=== PATIENT | male | born 1990 | race Caucasian/White ===

== ENCOUNTER 2017-03-14 10:10 | Emergency (ER) | payer OTHER ==
[2017-03-14 10:17] VITALS: TEMP 98.4
[2017-03-14] MEDS ORDERED: TDAP ADULT 0.5 ML INJ (BOOSTRIX) IM ONE (10:35)
--- NOTE | 2017-03-14 11:26 | EDPHY ---
General Narrative: CHIEF COMPLAINT: Right wrist laceration HISTORY OF PRESENT ILLNESS: Patient presents with complaints of accidental laceration to the right wrist. He works with a [employer]. He was attempting to move a vinyl graphic when it slipped, accidentally puncture in the right wrist. He says "it was pretty deep." He has no difficulty moving the wrist. No pulsatile bleeding. He does have some tingling on the ulnar side of the little finger. Moderately painful. Worse when he moves the fingers. Improvement with rest. No radiating pain. No difficulty bending or straightening the fingers. No injury elsewhere. Tetanus is up-to-date as best as he can remember but he is not entirely sure. No other associated complaints or modifying factors. TIME OF INJURY: Less than 1 hr prior to arrival TETANUS STATUS: Possibly within the past 2 years but uncertain MEDICAL/SURGICAL/SOCIAL HISTORY: No significant medical history. Does smoke cigarettes. REVIEW OF SYSTEMS: Ten systems reviewed and are negative unless otherwise noted in the HPI EXAMINATION General Appearance: Alert, no distress Head: normocephalic, atraumatic Cardiovascular: Pulses normal throughout. Symmetric radial pulses 2+. Brisk cap refill Neurological: A&O, casting molder strength symmetric. Sensory intact to the median and ulnar distribution with reported paresthesia of the right pinky. Skin: Warm and dry, no rash. 1 cm laceration on the right wrist, volar, just proximal to the carpals. No evidence of tendon injury. No foreign body. No pulsatile bleeding. Extremities: Tenderness in the area laceration. Full flexion extension of all fingers on the right hand without deficit. Full flexion of the wrist without deficit. No injury to the tendon appreciated DIFFERENTIAL DIAGNOSES: Including but not limited to simple laceration, complex laceration, laceration with tendon injury, laceration with arterial injury MDM: 10:35 a.m. Superficial laceration to the right wrist, volar. No evidence of tendon injury. No evidence of neurovascular injury. I have anesthetize the area. Proceed with irrigation closure. Tetanus will need to be updated. 11:25 a.m. Simple laceration that has been repaired without difficulty. Wound care discussed. I do not appreciate any evidence of tendon or arterial injury. Follow up with Work Comp clinic. ED precautions discussed. Suture removal in 7 days. Discharged in stable condition, neurovascular intact. PROCEDURE: Laceration repair Consent: Verbal Location: Right wrist, volar distally Length of repair: 1 cm Complexity: Simple Layer involvement: Single Anesthesia: Local. 1% lidocaine with epinephrine. 4 mL Irrigation: Extensive Debridement: None Procedure description: Following good anesthesia, the wound was copiously irrigated. Wound bed was explored with a sterile glove, and there is no foreign body noted. No injury to the underlying flexor tendons. Wound borders were approximated well with good hemostasis. Tolerated well without complication. Suture/Staple material: 5-0 Prolene, 2 simple interrupted sutures Wound care: Routine as discussed Suture/Staple removal: 7 Days SUPERVISION: This patient was independently evaluated without direct involvement of or examination by the attending physician. ED Precautions: Worsening pain. Erythema, edema, cyanosis, pallor, paresthesia or anesthesia. - History Smoking Status: Current every day smoker - Objective Vital Signs: Initial Vital Signs Temperature (C) 98.4 F 03/14/17 10:14 Heart Rate 88 03/14/17 10:14 Respiratory Rate 97 H 03/14/17 10:14 Blood Pressure 120/70 03/14/17 10:14 O2 Sat (%) 16 L 03/14/17 10:14 O2 Delivery Mode Room Air Allergies/Adverse Reactions: No Known Allergies Allergy (Unverified 03/14/17 10:14) Home Medications: Medication Instructions Recorded NK [No Known Home Meds] 03/14/17 Medications Given: Discontinued Medications Diphtheria/Tetanus/Acell Pertussis (Boostrix) 0.5 ml IM .ONCE ONE Stop: 03/14/17 10:36 Last Admin: 03/14/17 10:41 Dose: 0.5 ml Departure - Departure Disposition: Home, Routine, Self-Care Clinical Impression: Laceration of wrist Qualifiers: Encounter type: initial encounter Laterality: right Qualified Code(s): S61.511A - Laceration without foreign body of right wrist, initial encounter Condition: Good Instructions: Care For Your Stitches (ED), Laceration (ED) Additional Instructions: 1. Recommend light duty for the next 3 days 2. Ibuprofen 600 mg every 8 hr as needed for the next 7 days 3. Ice to the affected area as needed today 4. Contact your worker's compensation Clinic for definitive care 5. Suture removal in 7 days 6. ED precautions as discussed Referrals: Suri Rodríguez MD [[facility] [place] Primary Care Provider] - As per Instructions Stand Alone Forms: Work Comp Follow Up
[2017-03-14 11:40] VITALS: BP 131/84; PULSE 78; RESP 18; O2SAT 95
== END 2017-03-14 11:40 | disposition home or self-care (01) ==
PROC: 0HQDXZZ Repair Right Lower Arm Skin, External Approach (ICD-10-PCS; principal; 2017-03-14)
DX: S61.511A Laceration without foreign body of right wrist, initial encounter (principal); W26.8XXA Contact with other sharp object(s), not elsewhere classified, initial encounter; Y92.69 Other specified industrial and construction area as the place of occurrence of the external cause; Y99.0 Civilian activity done for income or pay; Y93.89 Activity, other specified; F17.200 Nicotine dependence, unspecified, uncomplicated; Z23 Encounter for immunization